=== PATIENT | male | born 1995 | race African-American/Black ===

== ENCOUNTER 2020-10-11 13:30 | Emergency (ER) | payer SELFPAY ==
[2020-10-11 13:41] VITALS: BP 146/96; PULSE 102; RESP 16; TEMP 36.9; O2SAT 100
--- NOTE | 2020-10-11 14:22 | ED.GENADULT ---
HPI - General Adult General Chief complaint: Upper Respiratory Infection Stated complaint: sore throat Time Seen by Provider: 10/11/20 14:23 Source: patient and RN notes reviewed Mode of arrival: ambulatory Limitations: no limitations History of Present Illness HPI narrative: 25-year-old -I[place] male presents with complaints of sore throat, cough, and congestion for the past 3 days. ?Malldoreenk reports increasing symptoms for the past 24 hours. ?No treatment. ?Ill exposure. ?No high fevers, drooling, neck or throat swelling. ?Pain is bilateral. Hurts to swallow. Exacerbation factors consist of yawning, swallowing, eating and drinking. ?Rhinorrhea and nasal congestion. ?No voice change. No nausea, vomiting, or abdominal pain. ?Tolerating liquids well. ?Denies chills, dyspnea, difficulty swallowing, jaw pain, dental pain, facial pain, foreign body sensation, and rash. ?Remains active. ?The patient reports he has not been diagnosed with COVID-19. ?The patient reports he is not waiting for the results of a COVID-19 lab test. ?The patient reports he does not have a new cough or worsening cough. ?The patient reports he does not have any loss of taste or smell and diarrhea. ?Denies recent traveling. ?Denies concerns for COVID-19 or exposures. ?At this time, the patient is not suspected of having COVID-19. Some parts of this dictation were generated by voice recognition software and may contain typographical and/or grammatical inaccuracies. Related Data Allergies Allergy/AdvReac Type Severity Reaction Status Date / Time No Known Allergies Allergy Verified 10/11/20 13:36 Review of Systems Review of Systems: Narrative: CONSTITUTIONAL: Denies fever, chills, sweats. EYES: Denies visual changes, redness, discharge. ENT: Denies otalgia. Complains of sore throat, rhinorrhea, congestion. CARDIOVASCULAR: Denies chest pain, palpitations, edema. RESPIRATORY: Denies dyspnea, wheezing. Complaints of cough. GASTROINTESTINAL: Denies abdominal pain, nausea, vomiting, diarrhea. GENITOURINARY: Denies dysuria, hematuria, abnormal discharge. SKIN: Denies rash or itching. MUSCULOSKELETAL: Denies acute back pain, joint pain, or myalgia. NEUROLOGIC: Denies numbness or focal weakness. PSYCHIATRIC: Denies anxiety or depression. All systems reviewed & are unremarkable except as noted in HPI and below. [facility] Past Medical History Medical History (Updated 10/12/20 @ 00:00 by Zev Hyde) Asthma childhood Surgical History Surgical History (Updated 10/11/20 @ 14:50 by JULITA Smalls) No significant past surgical history Family History Family History (Updated 10/11/20 @ 14:51 by JULITA Smalls) Father Small bowel problem Mother , related to cancer Cancer Social History Social History (Updated 10/11/20 @ 14:52 by JULITA Smalls) Smoking status: Light tobacco smoker Tobacco type: cigarettes Second hand tobacco smoke exposure: Yes (significant other) Alcohol intake: current Substance use: current Substance use type: marijuana Living arrangements: alone Occupation/Education: occupation Gender identity (if verbalized by the patient): Male Sexual Orientation (if Verbalized by the Patient): Straight or Heterosexual Comments At time of signature, agree with the nurse past medical, surgical, social, and family history. There is no relevant family history pertinent to the presenting complaint. Exam Narrative: Exam Narrative: GENERAL: This is a well-nourished, well-developed patient, in no apparent distress. Speaks in full sentences without deficits and ambulates with steady gait without dyspnea. HEAD: Normocephalic, atraumatic. EYES: PERRL. Sclera clear/white. Vision is grossly intact. EARS: External ears normal, auditory canals clear and without drainage, TMs normal without perforation. Hearing grossly intact. NOSE: External nose normal with no obvious nasal discharge, nares with moderate
[2020-10-11 14:35] VITALS: BP 138/82; PULSE 80
== END 2020-10-11 14:35 | disposition home or self-care (01) ==
PROVIDERS: Emergency Provider Nurse Practitioner Family
DX: J02.9 Acute pharyngitis, unspecified (principal); F17.210 Nicotine dependence, cigarettes, uncomplicated
CPT/HCPCS: 87880; 99213; G0463

== ENCOUNTER 2021-10-24 13:31 | Emergency (ER) | payer OTHER, SELFPAY ==
[2021-10-24 13:39] VITALS: BP 134/79; PULSE 75; RESP 16; TEMP 37.2; O2SAT 99
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
== END 2021-10-24 14:10 | disposition home or self-care (01) ==
PROVIDERS: Emergency Provider Nurse Practitioner
DX: L01.00 Impetigo, unspecified (principal); F17.210 Nicotine dependence, cigarettes, uncomplicated
CPT/HCPCS: 99213; G0463

== ENCOUNTER 2021-12-08 16:30 | Emergency (ER) | payer OTHER, SELFPAY ==
[2021-12-08 16:39] VITALS: BP 133/72; PULSE 81; RESP 16; TEMP 36.5; O2SAT 99
--- NOTE | 2021-12-08 16:51 | ED.URI ---
HPI - URI/Sore Throat General Chief Complaint: Upper Respiratory Infection Stated Complaint: Headache,Coughing,Sinus Time Seen by Provider: 12/08/21 16:52 History of Present Illness HPI Narrative: Ankush Ibarra is a 26 yo male with childhood asthma who comes with a generalized headache, took one 500 mg Tylenol. Patient is a smoker, no known infection, no head injury, no nausea vomiting diarrhea reported Related Data Home Medications Medication Instructions Recorded Confirmed No Home Medications 12/08/21 12/08/21 Allergies Allergy/AdvReac Type Severity Reaction Status Date / Time shrimp Allergy Other Verified 12/08/21 16:52 Review of Systems Review of Systems: CONSTITUTIONAL: Denies fever, chills, sweats. EYES: Denies visual changes, redness, discharge. ENT: Denies rhinorrhea, congestion, sore throat, otalgia. CARDIOVASCULAR: Denies chest pain, palpitations, edema. RESPIRATORY: Denies dyspnea, wheezing, cough GASTROINTESTINAL: Denies abdominal pain, nausea, vomiting, diarrhea. GENITOURINARY: Denies dysuria, hematuria, abnormal discharge SKIN: Denies rash or itching. NEUROLOGIC: Denies numbness, or focal weakness. PSYCHIATRIC: Denies anxiety or depression. Patient complaining of headache all over since yesterday has treated with 1 Tylenol only PMFSH Past Medical History Medical History Asthma childhood Surgical History Surgical History No significant past surgical history Family History Family History Father Small bowel problem Mother , related to cancer Cancer Social History Social History Smoking status: Light tobacco smoker Tobacco type: cigarettes Second hand tobacco smoke exposure: Yes (significant other) Alcohol intake: current Substance use: current Substance use type: marijuana Gender identity (if verbalized by the patient): Male Sexual Orientation (if Verbalized by the Patient): Straight or Heterosexual Exam Narrative: GENERAL: This is a well-nourished, well-developed patient, in mild distress. HEAD: normocephalic, atraumatic. EYES: PERRL, Sclera clear/white. Vision is grossly intact. EARS: External ears normal, . Hearing grossly intact. NOSE: External nose normal without nasal discharge, nares without redness, no rhinorrhea. THROAT: Mucous membranes moist, NECK: Neck supple, non-tender CARDIOVASCULAR: Regular rate and rhythm without murmurs, gallops, or rubs. RESPIRATORY: Clear to auscultation. Breath sounds equal bilaterally. No wheezes, rales, or rhonchi. GASTROINTESTINAL: not done SKIN: warm, intact with no suspicious lesions or rash, good texture and turgor. NEURO: awake, alert, and oriented to person, place and time. There were no obvious focal neurologic abnormalities. Steady gait EXTREMITIES: Normal range of motion. BACK: Nontender without deformity Course Course Emergency Course: Patient here is with a headache and earache that started yesterday and has not improved has taken 1 Tylenol tablet. He is concerned that he might be getting a sinus infection given Toradol and Zofran for headache Patient to get polymyxin eardrops for the left ear Level of Care: Express Care Visit Reevaluation(s) Reevaluation #1: Headache is improved and patient is ready to leave Date: 12/08/21 Time: 17:57 Vital Signs Vital signs: Vital Signs Temperature 97.7 F 12/08/21 16:39 Pulse Rate 81 12/08/21 16:39 Respiratory Rate 16 12/08/21 16:39 Blood Pressure 133/72 12/08/21 16:39 Pulse Oximetry 99 12/08/21 16:39 Oxygen Delivery Room Air 12/08/21 16:39 Temperature 97.7 F 12/08/21 16:39 Pulse Rate 81 12/08/21 16:39 Respiratory Rate 16 12/08/21 16:39 Blood Pressure 133/72 12/08/21 16:39 Pulse Oximetry 99 12/08
[2021-12-08] MEDS: KETOROLAC (*BKC) 60 MG/2 ML VIAL IM (17:05)
[2021-12-08] MEDS: ONDANSETRON HCL ODT 4 MG TABLET PO (17:06)
== END 2021-12-08 18:03 | disposition home or self-care (01) ==
PROVIDERS: Emergency Provider Nurse Practitioner
DX: R51.9 Headache, unspecified (principal); Z20.822 Contact with and (suspected) exposure to COVID-19; H66.001 Acute suppurative otitis media without spontaneous rupture of ear drum, right ear; F17.210 Nicotine dependence, cigarettes, uncomplicated
CPT/HCPCS: 87426; 96372; 99213; A9270; C9803; G0463; J1885

== ENCOUNTER 2022-01-27 12:00 | Emergency (ER) | payer OTHER, SELFPAY ==
--- NOTE | 2022-01-27 12:18 | ED.EAR ---
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 Described as sharp and shooting. States he thought the pain was from his ear, endorses sinus congestion and took Sudafed without relief. Denies recent injury. He slept on a couch pillow one night. Denies radiating pain to arm, numbness, tingling or weakness to the arm. Related Data Allergies Allergy/AdvReac Type Severity Reaction Status Date / Time shrimp Allergy Other Verified 01/27/22 12:17 Review of Systems Review of Systems: CONSTITUTIONAL: Denies body aches, fever, chills, or sweats. EYES: Denies visual changes, redness, or discharge. ENT: Reports rhinorrhea, congestion CARDIOVASCULAR: Denies chest pain, palpitations, or edema. RESPIRATORY: Denies cough or dyspnea. GASTROINTESTINAL: Denies abdominal pain, nausea, vomiting, or diarrhea. SKIN: Denies rash, itching, or wounds. MUSCULOSKELETAL: Reports pain to right side of head, neck, shoulder NEUROLOGIC: Denies headache, numbness, tingling, or weakness. All systems reviewed & are unremarkable except as noted in HPI and below PMFSH Past Medical History Medical History Asthma childhood Surgical History Surgical History No significant past surgical history Family History Family History Father Small bowel problem Mother , related to cancer Cancer Social History Social History Smoking status: Light tobacco smoker Tobacco type: cigarettes Second hand tobacco smoke exposure: Yes (significant other) Alcohol intake: current Substance use: current Substance use type: marijuana Gender identity (if verbalized by the patient): Male Sexual Orientation (if Verbalized by the Patient): Straight or Heterosexual Comments At time of signature, I have reviewed and agree with nursing past medical, surgical, social and family history unless otherwise noted. Please see nursing chart for further information. There is no relevant family history pertinent to the presenting complaint Exam Narrative: GENERAL: Well-appearing HEAD: Normocephalic, atraumatic. EYES: EOMI. No redness or drainage. Conjunctivae normal. ENT: Mucous membranes pink and moist. No rhinorrhea. TMs normal bilaterally. Throat normal. Uvula midline. NECK: Normal AROM. Supple. No VPT. No lymphadenopathy. CHEST: Clear to auscultation. HEART: Regular rate and rhythm. ABDOMEN: Soft, nontender, nondistended, normal active bowel sounds. MUSCULOSKELETAL: No bony tenderness. EXTREMITIES: Normal range of motion. No edema. SKIN: Warm, dry, no rash. Course Course Emergency Course: Patient is aware of diagnosis, understands and agrees to treatment plan. Anticipatory guidance given. Patient agrees to follow-up as directed and is aware of reasons to seek care at the emergency department. Portions of this record may have been created with voice recognition software Level of Care: Express Care Visit Medical Decision Making [facility] Narrative Medical decision making narrative: Appears to be musculoskeletal in nature. Advised supportive measures and signs/symptoms to go to the ER. Pt is appropriate for outpt treatment and f/u. Differential Diagnosis Differential Diagnosis: cervicalgia, radiculopathy, cervical strain, headache Vital Signs Vital Signs: reviewed Discharge Plan Discharge Clinical Impression: Head pain Qualifiers: Headache type: unspecified Headache chronicity pattern: acute headache Intractability: not intracta
[2022-01-27 12:35] VITALS: BP 126/85; PULSE 75; RESP 16; TEMP 36.6; O2SAT 99
== END 2022-01-27 12:40 | disposition home or self-care (01) ==
PROVIDERS: Emergency Provider Nurse Practitioner Family
DX: R51.9 Headache, unspecified (principal); F17.210 Nicotine dependence, cigarettes, uncomplicated
CPT/HCPCS: 99213; G0463

== ENCOUNTER 2022-09-20 09:12 | Emergency (ER) | payer OTHER, SELFPAY ==
[2022-09-20 09:23] VITALS: BP 127/80; PULSE 90; RESP 16; TEMP 36.9; O2SAT 99
--- NOTE | 2022-09-20 09:46 | ED.GENADULT ---
HPI - General Adult General Chief complaint: Chest Pain Stated complaint: Chest Pain Time Seen by Provider: 09/20/22 09:40 Source: patient and RN notes reviewed Mode of arrival: ambulatory Limitations: no limitations History of Present Illness HPI narrative: Patient presents today complaining of midline chest pain and severe reflux and belching symptoms upon waking this morning that worsen when he lies flat. He also had 1 episode of vomiting early this morning that he does not remember, that his reported to him. Patient has history of alcoholism. Last night he drank 6-8 shots of alcohol. States that daily he at least has 2-4 shots. 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 Denies personal or family cardiac history. Related Data Home Medications Medication Instructions Recorded Confirmed cetirizine 10 mg tablet (Zyrtec) 10 mg PO DAILY 09/20/22 09/20/22 Allergies Allergy/AdvReac Type Severity Reaction Status Date / Time shrimp Allergy Other Verified 09/20/22 09:18 Review of Systems Review of Systems: CONSTITUTIONAL: Denies body aches, fever, chills, or sweats. EYES: Denies visual changes, redness, or discharge. ENT: Denies rhinorrhea, congestion, sore throat, or otalgia. CARDIOVASCULAR: Denies palpitations, or edema. + chest pain RESPIRATORY: Denies cough or dyspnea. GASTROINTESTINAL: Denies abdominal pain, diarrhea.+ nausea, vomiting, reflux GENITOURINARY: Denies dysuria or hematuria. SKIN: Denies rash, itching, or wounds. MUSCULOSKELETAL: Denies back pain, joint pain, or myalgia. NEUROLOGIC: Denies headache, numbness, tingling, or weakness. PSYCH: Denies depression or anxiety. [facility] Past Medical History Medical History (Updated 09/20/22 @ 10:18 by Cady Small, JULITA, BC) Alcoholism Asthma childhood Surgical History Surgical History No significant past surgical history Family History Family History Father Small bowel problem Mother , related to cancer Cancer Social History Social History Smoking status: Light tobacco smoker Tobacco type: cigarettes Second hand tobacco smoke exposure: Yes (significant other) Alcohol intake: current Substance use: current Substance use type: marijuana Living arrangements: alone Occupation/Education: occupation Gender identity (if verbalized by the patient): Male Sexual Orientation (if Verbalized by the Patient): Straight or Heterosexual Exam Narrative: GENERAL: Well-appearing, well-nourished, and in no acute distress. Smiling and interactive. HEAD: Normocephalic, atraumatic. EYES: EOMI. No redness or drainage. Conjunctivae normal. ENT: Mucous membranes pink and moist. NECK: Normal AROM. Supple. No lymphadenopathy. CHEST: No respiratory distress. Clear to auscultation. Chest is nontender. HEART: Regular rate and rhythm. No murmur appreciated. Normal peripheral pulses. ABDOMEN: Soft, nontender, nondistended, normal active bowel sounds. Belching. EXTREMITIES: Normal range of motion. No edema. SKIN: Warm, dry, no rash. Capillary refill normal. Normal skin turgor. NEURO: No focal deficits. Alert and oriented x3. Gait steady. PSYCH: Normal affect. No signs of depression or anxiety. Course Course Level of Care: Express Care Visit Vital Signs Vital signs: Vital Signs Temperature 98.4 F 09/20/22 09:23 Pulse Rate 90 09/20/22 09:23 Respiratory Rate 16 09/20/22 09:23 Blood Pressure 127/80 09/20/22 09:23 Pulse Oximetry 99 09/20/22 09:23 Oxygen Delivery Room Air 09/20/22 09:23 Temperature 98.4 F 09/20/22 09:23 Pulse Rate 90 09/20/22 09:23 Respiratory Rate 16 09/20/22 09:23 Blood Pressure 127/80 09/20/22 09:23 Pulse Oximetry 99 09/20/22 09:23 Oxygen Delivery Room Air
[2022-09-20] MEDS: ONDANSETRON HCL ODT 4 MG TABLET 8 MG SUBLINGUAL (09:54)
--- NOTE | 2022-09-20 11:33 | ECG_ITS ---
Measurements Intervals [place] Rate: 70 P: 65 SD: 184 QRS: 53 QRSD: 97 T: 41 QT: 356 QTc: 385 Interpretive Statements SINUS RHYTHM NORMAL ELECTROCARDIOGRAM NO PREVIOUS ECG AVAILABLE FOR COMPARISON . Electronically Signed On 09-20-2022 13:32:02 CDT by Jaime Wilson M.D.
== END 2022-09-20 10:31 | disposition home or self-care (01) ==
PROVIDERS: Emergency Provider Nurse Practitioner
DX: K21.00 Gastro-esophageal reflux disease with esophagitis, without bleeding (principal); F17.210 Nicotine dependence, cigarettes, uncomplicated
CPT/HCPCS: 93005; 99213; A9270; G0463

== ENCOUNTER 2022-12-06 12:31 | Emergency (ER) | payer OTHER, SELFPAY ==
[2022-12-06 12:46] VITALS: BP 120/63; PULSE 70; RESP 16; TEMP 36.6; O2SAT 100
--- NOTE | 2022-12-06 14:00 | ED.DENTAL ---
HPI - Dental/Oral General Chief complaint: Dental/Oral Stated complaint: Dental Pain Time Seen by Provider: 12/06/22 13:50 Source: patient and RN notes reviewed Mode of arrival: ambulatory Limitations: no limitations History of Present Illness HPI Narrative: Patient presents today complaining of left upper dental pain since yesterday, worse today. States he broke approximately 1 year ago and he has been told in a needs to be removed. He was eating yesterday when it started hurting again. States increased pain with eating and cold. Related Data Allergies Allergy/AdvReac Type Severity Reaction Status Date / Time shrimp Allergy Other Verified 09/20/22 09:18 Review of Systems Review of Systems: CONSTITUTIONAL: Denies body aches, fever, chills, or sweats. EYES: Denies visual changes, redness, or discharge. ENT: Denies rhinorrhea, congestion, sore throat, or otalgia.+ dental pain CARDIOVASCULAR: Denies chest pain, palpitations, or edema. RESPIRATORY: Denies cough or dyspnea. GASTROINTESTINAL: Denies abdominal pain, nausea, vomiting, or diarrhea. GENITOURINARY: Denies dysuria or hematuria. SKIN: Denies rash, itching, or wounds. MUSCULOSKELETAL: Denies back pain, joint pain, or myalgia. NEUROLOGIC: Denies headache, numbness, tingling, or weakness. PSYCH: Denies depression or anxiety. [facility] Past Medical History Medical History Alcoholism Asthma childhood Surgical History Surgical History No significant past surgical history Family History Family History Father Small bowel problem Mother , related to cancer Cancer Social History Social History Smoking status: Light tobacco smoker Tobacco type: cigarettes Second hand tobacco smoke exposure: Yes (significant other) Alcohol intake: current Substance use: current Substance use type: marijuana Living arrangements: alone Occupation/Education: occupation Gender identity (if verbalized by the patient): Male Sexual Orientation (if Verbalized by the Patient): Straight or Heterosexual Comments At time of signature, I have reviewed and agree with nursing past medical, surgical, social and family history unless otherwise noted. Please see nursing chart for further information. There is no relevant family history pertinent to the presenting complaint Exam Narrative: GENERAL: Well-appearing, well-nourished, and in no acute distress. HEAD: Normocephalic, atraumatic. EYES: EOMI. No redness or drainage. Conjunctivae normal. ENT: Mucous membranes pink and moist. Pain to tooth 14 Without surrounding edema, facial edema or obvious periapical abscess. NECK: Normal AROM. Supple. No lymphadenopathy. CHEST: No respiratory distress. EXTREMITIES: Normal range of motion. No edema. SKIN: Warm, dry, no rash. Capillary refill normal. Normal skin turgor. NEURO: No focal deficits. Alert and oriented x3. Gait steady. PSYCH: Normal affect. No signs of depression or anxiety. Course Course Level of Care: Express Care Visit Vital Signs Vital signs: Vital Signs Temperature 98 F 12/06/22 12:46 Pulse Rate 70 12/06/22 12:46 Respiratory Rate 16 12/06/22 12:46 Blood Pressure 120/63 12/06/22 12:46 Pulse Oximetry 100 12/06/22 12:46 Oxygen Delivery Room Air 12/06/22 12:46 Temperature 98 F 12/06/22 12:46 Pulse Rate 70 12/06/22 12:46 Respiratory Rate 16 12/06/22 12:46 Blood Pressure 120/63 12/06/22 12:46 Pulse Oximetry 100 12/06/22 12:46 Oxygen Delivery Room Air 12/06/22 12:46 Reviewed MDM - Dental/Oral MDM Narrative Medical decision making narrative: Patient has known dental fracture and days that is direction. Will treat with a course of amoxicillin to ma
== END 2022-12-06 14:06 | disposition home or self-care (01) ==
PROVIDERS: Emergency Provider Nurse Practitioner
DX: S02.5XXA Fracture of tooth (traumatic), initial encounter for closed fracture (principal); T14.90XA Injury, unspecified, initial encounter
CPT/HCPCS: 99213; G0463

== ENCOUNTER 2024-07-12 01:22 | Emergency (ER) | payer SELFPAY ==
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
--- NOTE | ~2024-07-12 | CT_ITS ---
CT Facial Bones and Cervical Spine Clinical Indication: Injury Technique: Contiguous axial scans were obtained through the facial bones and cervical spine followed by coronal and sagittal reconstructions. Dose reduction technique was used on this scan by utilizing automated exposure control and iterative reconstruction technique. The dose-length product (DLP) was 399.97 mGy-cm. Findings: CT facial bones: No fractures are identified. The visualized paranasal sinuses are clear. Intraorbita l soft tissues appear normal. Soft tissue swelling at the upper lip with small radiopaque foreign bod y versus possible tooth fragment. CT cervical spine: No fractures or subluxation. Straightening of normal cervical lordosis noted. The intervertebral disc spaces are preserved. No prevertebral soft tissue swelling. Impression: No fracture is seen in the facial bones. Soft tissue swelling of the upper lip with small radiopaque foreign body versus possible tooth fragme nt in the left side. No fracture or subluxation of the cervical spine. Reviewed, dictated and finalized at [facility]. Impression: No fracture is seen in the facial bones. Soft tissue swelling of the upper lip with small radiopaque foreign body versus possible tooth fragment in the left side. No fracture or subluxation of the cervical spine.
--- NOTE | ~2024-07-12 | CT_ITS ---
Non-contrast Head CT History: Status post fall Technique: Axial non-contrast imaging of the brain was performed. Dose reduction technique was used on this scan by utilizing automated exposure control and iterative reconstruction technique. The dose -length product (DLP) was 681.00 mGy-cm. Findings: There is no evidence of intracranial hemorrhage, mass lesion, or acute infarct. Brain par enchyma appears normal. The ventricles and subarachnoid spaces are normal in size. The calvarium ap pears normal. The visualized paranasal sinuses and mastoid air cells are clear. Impression: No significant abnormality seen. Reviewed, dictated and finalized at location . Impression: No significant abnormality seen.
[2024-07-12 01:26] VITALS: BP 138/84; PULSE 98; RESP 18; TEMP 36.3; O2SAT 100
--- OUTSIDE RECORDS SUMMARY | 2024-07-12 01:27 | XMS_ITS | Encounter Summary ---
Author Organization [facility] Address [facility] [place] [address] Care Team Providers Care Supermarket Manager Name Role Phone None, Provider Primary Care Provider Tres sanches Encounter Details Date Type Department Care Team (Late st Contact Info) Description 07/09/2021 Mevvyhart Message Enc [facility] Medical Group Orthopedic & Sports Medicine - [place] [address] [place] [address] [phone] Jeremiah Negro MD [address] [place], [place] [id number] 843- SHORT TERM DISABILITY Social History Tobacco Use Types Packs/Day Years Used Date Smoking Tobacco: Former Smokeless Tobacco: Former Comments:quit- unsure when- less than 1 year- only smoke 3-4 cigs per day Alcohol Use Standard Drinks/Week Comments Not Currently 0 (1 standard drink = 0.6 oz pur e alcohol) none in 2 months PHQ-2 Answer Date Recorded PHQ-2 Score - If the patient scores above 3, please move on to questions 3-9 0 07/12/2021 Sex and Gender Information Value Date Recorded Sex Assigned at Not on file Legal Sex Male 2:41 PM CDT Gender Identity Male 07/02/2021 6:13 AM CDT Sexual Orientation Straight 07/02/2021 6: 13 AM CDT COVID-19 Exposure Response Date Recorded In the last 10 days, have yo u been in contact with someone who was confirmed or suspected to have Coronavirus/COVID-19? No / Unsure 07/12/2021 1:31 PM CDT documented as of this encounter Plan of Treatment Not on file documented as of this encounter Visit Diagnoses Not on filedocumented in this encounter Care Teams Supermarket Manager Relationship Specialty Start Date End Date None, Provider, PCP - General 06/26/21 documented as of this encounter
--- OUTSIDE RECORDS SUMMARY | 2024-07-12 01:27 | XMS_ITS | Clinical Summary ---
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 Gender Identity Not on file Sexual Orientation Not on file Plan of Treatment Health Maintenance Due Date Last Done Comments Hepatitis C Virus (HCV) Screening 1996 TdaP Immunization 1996 Hepatitis B Immunization (1 of 3 - 19+ 3-dose series) 2015 Influenza Immunization (#1) 2023 SARS-COV-2 Immunization (3 - 2023-25 season) 2023 12/19/2020, 11/19/2020 Respiratory Syncytial Virus (RSV) Immunization (Adult) (1 - 1-dose 75+ series) 2071 Meningococcal Immunization (ACWY) Aged Out No longer eligible b ased on patient's age to complete this topic Pneumococcal Immunization Combined Aged Out No longer eligible b ased on patient's age to complete this topic Rotavirus Immunization Aged Out No lo nger eligible based on patient's age to complete this topic
--- OUTSIDE RECORDS SUMMARY | 2024-07-12 01:27 | XMS_ITS | Clinical Summary ---
Author Organization [facility] Address [address] [place] [address] Care Team Providers Care Glove Turner And Former Name Role Phone None, Provider MD Primary Care Provider Unavaila ble Allergies Active Allergy Reactions Criticality Noted Date Comments Shrimp (Diagnostic) Anaphylaxis High 07/02/2021 Medications acetaminophen 325 MG tablet Take 650 mg by mouth every 6 (six) hours as needed for Pain. Active Active Problems No known active problems Family History Medical History Relation Comments No Known Problems Brother No Known Problems Father No Known Problems Maternal Aunt No Known Problems Maternal Grandfather Cancer Maternal Grandmother No Known Problems Maternal Uncle No Known Problems Mother No Known Problems Paternal Aunt No Known Problems Paternal Grandfather No Known Problems Paternal Grandmother No Known Problems Paternal Uncle No Known Problems Sister Relation Status Comments Brother Father Maternal Aunt Maternal Grandfather Maternal Grandmother Maternal Uncle Mother Paternal Aunt Paternal Grandfather Paternal Grandmother Paternal Uncle Sister Social History Tobacco Use Types Packs/Day Years Used Date Smoking Tobacco: Former Smokeless Tobacco: Former Tobacco Cessation:Counseling Given: No Comments:Former, Quit Alcohol Use Standard Drinks/Week Comments Not Currently 0 (1 standard drink = 0.6 oz pur e alcohol) none in 2 months PHQ-2 Answer Date Recorded PHQ-2 Score - If the patient scores above 3, please move on to questions 3-9 0 08/02/2021 Sex and Gender Information Value Date Recorded Sex Assigned at Not on file Legal Sex Male 2:41 PM CDT Gender Identity Male 07/02/2021 6:13 AM CDT Sexual Orientation Straight 07/02/2021 6: 13 AM CDT Last Filed Vital Signs Vital Sign Reading Time Taken Comments Blood Pressure 116/74 08/02/2021 1:21 PM CDT Pulse 71 08/02/2021 1:21 PM CDT Temperature 37.3 C (99.1 F) 08/02/2021 1:21 PM CDT Respiratory Rate 18 07/12/2021 1:37 PM CDT Oxygen Saturation 100% 08/02/2021 1:21 PM CDT Inhaled Oxygen Concentration - - Weight 88.9 kg (196 lb) 08/02/2021 1:21 PM CDT Height 177.8 cm (5' 10 ) 08/02/2021 1:21 PM CDT Body Mass Index 28.12 08/02/2021 1:21 PM CDT Plan of Treatment Health Maintenance Due Date Last Done Comments Annual Physical 1999 Hepatitis C 2014 DTaP, Tdap and Td Vaccines ( 1 - Tdap) 2015 Hepatitis B Vaccines (1 of 3 - 19+ 3-dose series) 2015 COVID-19 Vaccine (2023-2 5 season) 2023 HPV Vaccines Aged Out No longer eligi ble based on patient's age to complete this topic Meningococcal B Vaccine Aged Out No l onger eligible based on patient's age to complete this topic Meningococcal Vaccine Aged Out No caity sherice eligible based on patient's age to complete this topic Pneumococcal Vaccine: Pediat rics (0 to 5 Years) and At-Risk Patients (6 to 64 Years) Aged Out No longer eligible b ased on patient's age to complete this topic RSV Immunizations Under 20 Months Aged Out No longer eligible based on patient's age to complete this topic Insurance [employer] Care Teams Glove Turner And Former Relationship Specialty Start Date End Date None, Provider, PCP - General 06/26/21
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
--- OUTSIDE RECORDS SUMMARY | 2024-07-12 01:48 | XMS_ITS | Clinical Summary ---
Author Organization [facility] Address [address] [place] [id number] Care Team Providers Care Boardmarker Name Role Phone None, Provider MD Primary [...] complete this topic Insurance [employer] Care Teams Boardmarker Relationship Specialty Start Date End Date None, Provider, PCP - General 06/26/21
--- OUTSIDE RECORDS SUMMARY | 2024-07-12 01:48 | XMS_ITS | Clinical Summary ---
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
--- OUTSIDE RECORDS SUMMARY | 2024-07-12 01:48 | XMS_ITS | Encounter Summary ---
Author Organization [facility] Address [facility] [place] [address] Care Team Providers Care Hazardous Materials Waste Technician Name Role Phone None, Provider Primary Care Provider Tres sanches Encounter Details Date Type Department Care Team (Late st Contact Info) Description 07/09/2021 [employer]ake Marketing Technologies[employer] Message Enc [facility] Medical Group Orthopedic & Sports Medicine - [place] [address] [place] [address] [phone] Jeremiah Negro MD [address] [place], [place] [id number] 113- SHORT TERM DISABILITY Social History Tobacco Use [...] on filedocumented in this encounter Care Teams Hazardous Materials Waste Technician Relationship Specialty Start Date End Date None, Provider, PCP - General 06/26/21 documented as of this encounter
[2024-07-12] MEDS: MORPHINE SULFATE (*CRX) 2 MG/ML INJ IV PUSH (01:54)
[2024-07-12 02:25] LABS: Basophils Absolute Auto 0.1 K/mm3 (0.0-0.1); Basophils Percent Auto 0.8 % (0.2-1.2); Eosinophils Absolute Auto 0.1 K/mm3 (0-0.3); Eosinophils Percent Auto 1.5 % (0-4.4); Hematocrit 45.3 % (42.0-52.0); Hemoglobin 14.6 g/dL (14.0-18.0); Immature Granulocyte Absolute 0.01 K/mm3 (0.00-0.031); Immature Granulocyte Percent A 0.1 % (0-0.5); Lymphocytes Absolute Auto 2.03 K/mm3 (0.9-3.2); Lymphocytes Percent Auto 26.8 % (18.3-44.2); Mean Corpuscular HGB Conc 32.2 g/dl (32-36); Mean Corpuscular Hemoglobin 27.9 pg (26-34); Mean Corpuscular Volume 86.5 fl (80-100); Mean Platelet Volume 11.1 fl (7.4-10.4); Monocytes Absolute Auto 0.6 K/mm3 (0.1-0.6); Neutrophils Absolute Auto 4.8 K/mm3 (1.3-6.7); Neutrophils Percent Auto 62.8 % (45.5-73.1); Platelet Count Result 290 k/mm3 (150-375); Red Blood Count 5.24 M/mm3 (4.6-6.20); Red Cell Distribution Width 13.4 % (11.5-14.5); White Blood Count 7.6 K/mm3 (4.5-10.0)
--- NOTE | 2024-07-12 02:45 | PC.NURSE ---
Pt refusing CT scans, pt redirected and risks explained.
[2024-07-12 02:47] LABS: Alanine Aminotransferase 50 U/L (6-50); Albumin Level 5.2 g/dL (3.5-5.1); Alkaline Phosphatase 86 U/L (38-126); Anion Gap 18 mmol/L (4-12); Aspartate Amino Transferase 44 U/L (17-59); Bilirubin,Total 0.6 mg/dL (0.2-1.3); Blood Urea Nitrogen 15 mg/dL (9-20); Calcium 8.9 mg/dL (8.4-10.2); Carbon Dioxide 23 mmol/L (22-30); Chloride 102 mmol/L (98-107); Estimated CRCL calculation 70 ml/min; Estimated Glomerular Filt Rate 57; Glucose 92 mg/dL (65-110); Potassium 3.7 mmol/L (3.4-5.0); Sodium 143 mmol/L (137-145)
[2024-07-12 02:48] LABS: Ethanol 287 mg/dL (<10)
[2024-07-12] MEDS: SODIUM CHLORIDE 0.9% IV 1,000 ML 999 ML IV CONT (02:59)
[2024-07-12] MEDS: TETANUS,DIPHTHERIA,AC PERTUSSIS ADULT (0.5 ML) BOOSTRIX IM (02:59)
--- NOTE | 2024-07-12 03:10 | PC.NURSE ---
Pt taken to CT by this RN
[2024-07-12 05:25] LABS: Add Urine Microscopic? NO; Appearance Urine Clear (Clear); Bilirubin Urine Negative (Negative); Blood Urine Negative (Negative); Color Urine Yellow (Yellow); Glucose Urine UA Negative (Negative); Ketones Urine Trace mg/dL (Negative); Leukocyte Esterase Ur Negative LEU/UL (Negative); Nitrate Urine Negative (Negative); Protein Urine Negative (Negative); Specific Grav Ur > 1.045 (1.001-1.035); Urobilinogen Urine 0.2 mg/dL (<2.0)
[2024-07-12 05:42] LABS: Amphetamine Screen Urine Negative (Negative); Barbiturate Screen Urine Negative (Negative); Benzodiazepines Screen Urine Negative (Negative); Cannabinoid Screen Urine Positive (Negative); Cocaine Screen Urine Negative (Negative); Methadone Screen Urine Negative (Negative); Opiate Screen Urine Positive (Negative); Phencyclidine Screen Urine Negative (Negative)
[2024-07-12] MEDS: LIDOCAINE 1% LOCAL INJ 10 ML VIAL INFILTRATE (05:49)
== END 2024-07-12 06:15 | disposition home or self-care (01) ==
PROVIDERS: Emergency Provider Student in an Organized Health Care Education/Training Program
DX: S01.511A Laceration without foreign body of lip, initial encounter (principal); S01.81XA Laceration without foreign body of other part of head, initial encounter; S60.512A Abrasion of left hand, initial encounter; S60.511A Abrasion of right hand, initial encounter; S50.811A Abrasion of right forearm, initial encounter; S09.93XA Unspecified injury of face, initial encounter; R07.9 Chest pain, unspecified; R10.9 Unspecified abdominal pain; F10.129 Alcohol abuse with intoxication, unspecified; Y90.8 Blood alcohol level of 240 mg/100 ml or more; Z23 Encounter for immunization; J45.909 Unspecified asthma, uncomplicated; H54.62 Unqualified visual loss, left eye, normal vision right eye; F17.210 Nicotine dependence, cigarettes, uncomplicated; V28.41XA Electric (assisted) bicycle driver injured in noncollision transport accident in traffic accident, initial encounter
CPT/HCPCS: 12011; 36415; 70450; 70486; 71260; 72125; 74177; 80053; 80307; 81003; 82077; 85025; 90471; 90715; 96361; 96374; 99284; J2003; J2270; J7030; Q9967

== ENCOUNTER 2024-07-20 15:11 | Emergency (ER) | payer SELFPAY ==
[2024-07-20 15:21] VITALS: BP 118/72; PULSE 79; RESP 14; TEMP 36.6; O2SAT 100
--- NOTE | 2024-07-20 15:26 | ED_ITS ---
HPI - Wound/Laceration General Chief Complaint: Wound/Laceration Stated Complaint: suture removal Time Seen by Provider: 07/20/24 15:32 Source: patient and RN notes reviewed Mode of arrival: ambulatory Limitations: no limitations History of Present Illness HPI narrative: 29-year-old male presents with concern for suture removal. He reports 8 days ago he had 3 sutures placed in his upper lip. He reports the area has crusted over and is having a small amount of cloudy yellow drainage. Related Data Allergies Allergy/AdvReac Type Severity Reaction Status Date / Time shrimp Allergy Other Verified 07/20/24 15:13 Review of Systems Review of Systems: CONSTITUTIONAL: Denies malaise, chills, sweats, or fever. SKIN: Reports sutured wound in his upper lip with cloudy yellow drainage MUSCULOSKELETAL: Denies myalgia. All systems reviewed & are unremarkable except as noted in HPI and below PMFSH Past Medical History Medical History Blind left eye Alcoholism Asthma childhood Surgical History Surgical History No significant past surgical history Family History Family History (Reviewed 12/06/22 @ 14:00 by Cady Small, [facility]) Father Small bowel problem Mother , related to cancer Cancer Social History Social History Smoking status: Light tobacco smoker Tobacco type: cigarettes Second hand tobacco smoke exposure: Yes (significant other) Alcohol intake: current Substance use: current Substance use type: marijuana Living arrangements: alone Occupation/Education: occupation Gender identity (if verbalized by the patient): Male Sexual Orientation (if Verbalized by the Patient): Straight or Heterosexual Comments At time of signature, agree with nursing past medical, surgical, social and family history. There is no relevant family history pertinent to the presenting complaint Exam Narrative: GENERAL: Well-appearing, well-nourished, and in no acute distress. HEAD: Normocephalic, atraumatic. EYES: PERRLA, conjunctivae clear ENT: Mucous membranes moist. NECK: Supple. No lymphadenopathy CHEST: Speaks in full sentences. No respiratory distress. HEART: Regular rate and rhythm. SKIN: Warm, dry. Wound with yellow crustiness and cloudy drainage noted to the left upper lip with 3 intact sutures NEURO: Alert and oriented x3. PSYCH: Normal mood and affect Course Course Emergency Course: Patient is aware of diagnosis, understands and agrees to treatment plan. Anticipatory guidance given. Patient agrees to follow-up as directed and is aware of reasons to seek care at the emergency department. Portions of this record may have been created with voice recognition software Level of Care: Express Care Visit Vital Signs Vital signs: Vital Signs Temperature 98 F 07/20/24 15:21 Pulse Rate 79 07/20/24 15:21 Respiratory Rate 14 07/20/24 15:21 Blood Pressure 118/72 07/20/24 15:21 Pulse Oximetry 100 07/20/24 15:21 Oxygen Delivery Room Air 07/20/24 15:21 Temperature 98 F 07/20/24 15:21 Pulse Rate 79 07/20/24 15:21 Respiratory Rate 14 07/20/24 15:21 Blood Pressure 118/72 07/20/24 15:21 Pulse Oximetry 100 07/20/24 15:21 Oxygen Delivery Room Air 07/20/24 15:21 Reviewed. MDM - Wound/Laceration MDM Narrative Medical decision making narrative: Verbal consent was obtained. Wound well approximated, no erythema, induration, or discharge noted. Three simple interrupted completely removed in a sterile fashion. Patient tolerated procedure well, no complications. Patient advised to look for and return for any signs of infection such as redness, swelling, discharge, or worsening pain. Critical Care Time Critical Care Time Critical Care Time: No Discharge Plan Discharge Clinical Impression: Encounter for removal of sutures, Wound infection Patient Disposition: Home Condition: Stable Instructions: Antibiotic Form, Wound Infection (ED) Additional Instructions: Please follow up with your Primary Care Doctor within 48-72 hours - call for an appointment. Apply moist heat 3-4 times daily for 10-15 minutes. Take Motrin 600mg every 8 hours with food for pain. Please take Antibiotics as directed. If you experience any worsening redness, swelling, streaking (red lines), fever or chills please go to the ER Patient Language: [place] Prescriptions: New amoxicillin-pot clavulanate 875-125 mg tablet 1 tablet PO Q12H 10 Days Qty: 20 0RF Follow-up/Referrals: PHYSICIAN,FINISHER SCREWDOWN [Primary Care Provider] - Time of Disposition: 15:40
== END 2024-07-20 15:45 | disposition home or self-care (01) ==
PROVIDERS: Emergency Provider Nurse Practitioner
DX: S01.511D Laceration without foreign body of lip, subsequent encounter (principal); L08.9 Local infection of the skin and subcutaneous tissue, unspecified; X58.XXXD Exposure to other specified factors, subsequent encounter; F17.210 Nicotine dependence, cigarettes, uncomplicated; F12.90 Cannabis use, unspecified, uncomplicated
CPT/HCPCS: 99203; G0463